=== PATIENT | male | born 1945 | race Caucasian/White ===

== ENCOUNTER 2017-08-29 11:32 | Emergency (ER) | payer OTHER, BC ==
[2017-08-29 11:43] VITALS: TEMP 98.8
--- NOTE | 2017-08-29 12:47 | EDPHY ---
H & P Time Seen by Provider: 08/29/17 12:44 HPI/ROS: Chief complaint. Passed out HPI. 71-year-old male presents emergency department with a syncopal episode that occurred yesterday on an airplane. The patient and his were flying from [place] to [place]. While on the plane he felt hot and sweaty and then had approximately 5 minute loss of consciousness according to his . Blood pressure was found to be low at 90 2/46. He talked to his regular physician in [place] who recommended evaluation in the emergency department. The patient was seen by EMS at the airport yesterday and refused transport. He has had no symptoms since yesterday. 1 month ago the patient had some chest discomfort that he described as constriction. He subsequently had workup including EKG, stress test, echocardiogram that were normal. He does take verapamil for rapid heart rate for many years as well as lisinopril for hypertension. He arrived yesterday from [place]. He did not have any chest discomfort or shortness of breath with his syncopal episode. ROS Constitutional. no fever/chills, no weakness Eyes. no problems with vision ENT. no sore throat, no nasal drainage Cardiovascular. no chest pain Respiratory. no shortness of breath, no cough Abdominal. no abdominal pain, no nausea/vomiting, no diarrhea . no problems urinating MS. no calf pain/swelling, no neck/back pain, no joint pain Skin. no rash Lymph. no swollen glands Neuro. Syncope Past Medical/Surgical History: Lymphoma that is in remission, hypertension Social History: , nonsmoker, no alcohol Smoking Status: Never smoked Physical Exam: General Appearance: Alert pleasant well-developed male mild distress vital signs are stable Eyes: Pupils equal and round no pallor or injection. ENT, Mouth: Mucous membranes are moist. Respiratory: There are no retractions, lungs are clear to auscultation. Cardiovascular: Regular rate and rhythm. Gastrointestinal: Abdomen is soft and nontender, no masses, bowel sounds normal. Neurological: Awake and alert, sensory and motor exams grossly normal. Skin: Warm and dry, no rashes. Musculoskeletal: Neck is supple nontender. Extremities symmetrical, full range of motion. Psychiatric: Patient is oriented X 3, there is no agitation. Constitutional: Initial Vital Signs Temperature (C) 37.1 C 08/29/17 11:40 Heart Rate 87 08/29/17 11:40 Respiratory Rate 18 08/29/17 11:40 Blood Pressure 166/92 H 08/29/17 11:40 O2 Sat (%) 92 08/29/17 11:40 O2 Delivery Mode Room Air Allergies/Adverse Reactions: No Known Allergies Allergy (Unverified 08/29/17 11:39) Home Medications: Medication Instructions Recorded Lisinopril 08/29/17 Verapamil 08/29/17 Medical Decision Making - Diagnostics EKG Interpretation: EKG interpreted by me shows normal sinus rhythm normal interval. There is left axis deviation. QRS is otherwise normal there is no significant ST elevation or depression. No arrhythmia. The rate is 72 Imaging Results: CT angiogram chest reviewed by me and discussed with Dr. Rizzo shows no evidence for pulmonary embolus Procedures: IV normal saline, monitor ED Course/Re-evaluation: Re-evaluation at 2:30 a.m. patient is stable without symptoms. His D-dimer is elevated. Patient, his and I discussed treatment plan including recommendation for CT angiogram for syncope and plane travel. They expressed understanding and agreement. The CT is ordered Re-evaluation again at 3:40 p.m.. Patient is without symptoms. Copies of labs and imaging studies as well as EKG are given to the patient Differential Diagnosis: This may have been vasovagal syncope. I have considered acute coronary syndrome , cardiac arrhythmia which we do not see any evidence of now. I considered pulmonary embolus. His diet D-dimer is elevated and CT angiogram pending - Data Points Laboratory Results: Laboratory Results 08/29/17 12:51 08/29/17 12:51 08/29/17 08/29/17 08/29/17 12:51 12:51 12:51 WBC 7.69 10^3/uL 10^3/uL (3.80-9.50) RBC 4.82 10^6/uL 10^6/uL (4.40-6.38) Hgb 14.6 g/dL g/dL (13.7-17.5) Hct 43.3 % % (40.0-51.0) MCV 89.8 fL fL (81.5-99.8) MCH 30.3 pg pg (27.9-34.1) MCHC 33.7 g/dL g/dL (32.4-36.7) RDW 13.7 % % (11.5-15.2) Plt Count 285 10^3/uL 10^3/uL (150-400) MPV 9.6 fL fL (8.7-11.7) Neut % (Auto) 50.7 % % (39.3-74.2) Lymph % (Auto) 35.2 % % (15.0-45.0) Haines % (Auto) 10.8 % % (4.5-13.0) Eos % (Auto) 2.3 % % (0.6-7.6) Baso % (Auto) 0.7 % % (0.3-1.7) Nucleat RBC Rel Count 0.0 % % (0.0-0.2) Absolute Neuts (auto) 3.90 10^3/uL 10^3/uL (1.70-6.50) Absolute Lymphs (auto) 2.71 10^3/uL 10^3/uL (1.00-3.00) Absolute Monos (auto) 0.83 10^3/uL H 10^3/uL (0.30-0.80) Absolute Eos (auto) 0.18 10^3/uL 10^3/uL (0.03-0.40) Absolute Basos (auto) 0.05 10^3/uL 10^3/uL (0.02-0.10) Absolute Nucleated RBC 0.00 10^3/uL 10^3/uL (0-0.01) Immature Gran % 0.3 % % (0.0-1.1) Immature Gran # 0.02 10^3/uL 10^3/uL (0.00-0.10) D-Dimer 0.60 ug/mLFEU H ug/mLFEU (0.00-0.50) Sodium 139 mEq/L mEq/L (134-144) Potassium 3.9 mEq/L mEq/L (3.5-5.2) Chloride 102 mEq/L mEq/L (97-110) Carbon Dioxide 23 mEq/l mEq/l (22-31) Anion Gap 14 mEq/L mEq/L (8-16) BUN 17 mg/dL mg/dL (7-23) Creatinine 0.9 mg/dL mg/dL (0.7-1.3) Estimated GFR > 60 Glucose 88 mg/dL mg/dL (70-100) Calcium 10.3 mg/dL mg/dL (8.5-10.4) Troponin I < 0.012 ng/mL ng/mL (0.000-0.034) Medications Given: Discontinued Medications Sodium Chloride (Ns) 1,000 mls @ 0 mls/hr IV EDNOW ONE; Wide Open PRN Reason: Protocol Stop: 08/29/17 13:17 Last Admin: 08/29/17 13:27 Dose: 1,000 mls Departure - Departure Disposition: Home, Routine, Self-Care Clinical Impression: Syncope Qualifiers: Syncope type: vasovagal syncope Qualified Code(s): R55 - Syncope and collapse Condition: Good Instructions: Syncope (ED) Additional Instructions: Drink plenty of fluids and stay hydrated. Normal activity. Return for further passing out episodes, chest discomfort, trouble breathing. Follow up with your regular physician upon return home to [place] Referrals: ALISON VALIENTE [Other] - As per Instructions
--- NOTE | 2017-08-29 12:50 | CPEKG ---
Heart Rate: 72 RR Interval: 833 P-R Interval: 168 QRSD Interval: 104 QT Interval: 408 QTC Interval: 447 P [place]: 18 QRS [place]: -30 T Wave [place]: 7 EKG Severity - OTHERWISE NORMAL ECG - EKG Impression: SINUS RHYTHM EKG Impression: LEFT AXIS DEVIATION Electronically Signed By: Duc Panchal 29-Aug-2017 15:54:29
[2017-08-29 13:11] VITALS: RESP 16
[2017-08-29] MEDS ORDERED: NS 1,000 ML IV ONE (13:16)
[2017-08-29 13:23] LABS: % IMMATURE GRANULYOCYTES 0.3 % (0.0-1.1); ABSOLUTE IMMATURE GRANULOCYTES 0.02 10^3/uL (0.00-0.10); ADD DIFF? NO; ADD MORPH? NO; ADD SCAN? NO; ATYPICAL LYMPHOCYTE FLAG 0 (0-99); FRAGMENT RBC FLAG 0 (0-99); HEMATOCRIT 43.3 % (40.0-51.0); HEMOGLOBIN 14.6 g/dL (13.7-17.5); LEFT SHIFT FLG 0 (0-99); LIPEMIA HEMOLYSIS FLAG 80 (0-99); MEAN CELL HEMOGLOBIN 30.3 pg (27.9-34.1); MEAN CELL HEMOGLOBIN CONCENTR. 33.7 g/dL (32.4-36.7); MEAN CELL VOLUME 89.8 fL (81.5-99.8); MEAN PLATELET VOLUME 9.6 fL (8.7-11.7); PLATELET CLUMPS FLAG 0 (0-99); PLATELET COUNT 285 10^3/uL (150-400); RED BLOOD CELL COUNT 4.82 10^6/uL (4.40-6.38); RED CELL DISTRIBUTION WIDTH 13.7 % (11.5-15.2)
[2017-08-29 13:48] LABS: ANION GAP 14 mEq/L (8-16); CALCIUM 10.3 mg/dL (8.5-10.4); CARBON DIOXIDE 23 mEq/l (22-31); CHLORIDE 102 mEq/L (97-110); CREATININE 0.9 mg/dL (0.7-1.3); GLOMERULAR FILTRATION RATE > 60; GLUCOSE 88 mg/dL (70-100); POTASSIUM 3.9 mEq/L (3.5-5.2); SODIUM 139 mEq/L (134-144)
[2017-08-29 13:58] LABS: TROPONIN I < 0.012 ng/mL (0.000-0.034)
[2017-08-29] MEDS ORDERED: IOPAMIDOL (ISOVUE 370) 100 ML BTL IV ONE ×2 (14:40→14:54)
[2017-08-29 16:10] VITALS: BP 155/86; PULSE 69; O2SAT 91
== END 2017-08-29 16:28 | disposition home or self-care (01) ==
DX: R55 Syncope and collapse (principal); E86.9 Volume depletion, unspecified; I10 Essential (primary) hypertension
CPT/HCPCS: 71275; 93005; 99285; Q9967